=== PATIENT | female | born 2000 | race Caucasian/White ===

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

== ENCOUNTER 2019-04-26 10:03 | Emergency (ER) | payer OTHER ==
[~2019-04-26] VITALS: Ht 167.6 cm; Wt 67.0 kg
[~2019-04-26 10:03] MED LIST: ACET500C5 PO; IBUP-1542 PO; LACT1CAP28 PO; ONDA4TAB14 PO
[2019-04-26 10:06] VITALS: BP 125/77; PULSE 83; RESP 16; Ht 167.6 cm; Wt 67.0 kg
--- NOTE | 2019-04-26 12:08 | ERD ---
ER Documentation Chief Complaint Chief Complaint SORE THROAT AND COLD SX X3 DAYS HPI This is a 19-year-old otherwise healthy female presents to the ED complaining of subjective fevers, runny nose, sore throat x3 days. She has been taking mluo-smo-ozspakx DayQuil without any relief. She states cough is nonproductive in nature. No wheezing, no shortness of breath, no chest pain. She is most bothered by her sore throat. She denies any drooling, trismus, difficulty swallowing or tonsillar exudates. Immunizations UTD. ROS All systems reviewed and are negative except as per history of present illness. Medications Home Meds Active Scripts Ondansetron (Ondansetron Odt) 4 Mg Tab.rapdis, 4 MG PO Q6H PRN for NAUSEA AND/OR VOMITING, #20 TAB Prov:RUDY URBINA NP 03/04/18 Acetaminophen* (Tylophen*) 500 Mg Capsule, 1 CAP PO Q6H PRN for PAIN AND OR ELEVATED TEMP, #20 CAP Prov:RUDY URBINA NP 03/04/18 Ibuprofen* (Motrin*) 600 Mg Tab, 600 MG PO Q6H PRN for PAIN AND OR ELEVATED TEMP, #30 TAB Prov:RUDY URBINA NP 03/04/18 Lactobacillus Rhamnosus GG (Culturelle) 1 Each Capsule, 1 CAP PO BID for 30 Days, #60 CAP Prov:ELIZABETH MENDENHALL MD 01/07/18 Allergies Allergies: Coded Allergies: No Known Allergy (Unverified , 01/02/18) PMhx/Soc Medical and Surgical Hx: pt denies Medical Hx, pt denies Surgical Hx History of Surgery: No Anesthesia Reaction: No Hx Neurological Disorder: No Hx Respiratory Disorders: No Hx Cardiac Disorders: No Hx Psychiatric Problems: No Hx Miscellaneous Medical Probl: No Hx Alcohol Use: No Hx Substance Use: No Hx Tobacco Use: No Smoking Status: Never smoker Physical Exam Vitals Vital Signs Date Temp Pulse Resp B/P (MAP) Pulse Ox O2 O2 Flow FiO2 Time Delivery Rate 04/26/19 99.6 83 16 125/77 97 10:06 (93) Physical Exam GENERAL: Child is well hydrated, well nourished, and non-toxic with age- appropriate behavior. HEENT: + Posterior OP erythema, mild tonsillar edema with scant exudates. Uvula is midline. Bilateral ear canals and TM's are normal. EYES: Pupils equal, round, and reactive to light. Extra-ocular motions intact. NECK: C-spine is soft and supple. No meningismus. + LAD. Trachea is midline. LUNGS: Clear to auscultation bilaterally. There are no rales, wheezes, or rhonchi. There is no inspiratory stridor or retractions. HEART: Regular rate and rhythm. No murmurs, clicks, rubs, or gallops. SKIN: There is no apparent rash, petechiae, erythema, or swelling. Cap refill is less than 2 seconds. Procedures/MDM LABS & DIAGNOSTIC IMAGING: Rapid strep: negative Throat cx: pending MEDICAL DECISION MAKIN-year-old otherwise healthy female presents with URI. Pt is nontoxic appearing, well hydrated and tolerating PO. No signs of hypoxia or acute respiratory distress. She is most concerned of her sore throat, rapid strep was negative. I have low clinical suspicion for pneumonia or significant bacterial disease. Pt will be treated with outpatient supportive care; no indications for antibiotics at this time. Discussed appropriate use and dosing of Tylenol and Motrin for fever control with parents. Recommend following up with metal fabricating supervisor in 2-4 days, otherwise return to the ED for worsening fevers, difficulty breathing, difficulty swallowing or any other concern. PRESCRIPTIONS: None SPECIALIST FOLLOW UP RECOMMENDED: None Patient has been advised to follow up with primary care in 1-2 days. Departure Diagnosis: Primary Impression: URI (upper respiratory infection) URI type: unspecified viral URI Qualified Codes: J06.9 - Acute upper respiratory infection, unspecified Condition: Stable Patient Instructions: Preventing Common Respiratory Infections Referrals: [facility] YOU HAVE RECEIVED A MEDICAL SCREENING EXAM AND THE RESULTS INDICATE THAT YOU DO NOT HAVE A CONDITION THAT REQUIRES URGENT TREATMENT IN THE EMERGENCY DEPARTMENT. FURTHER EVALUATION AND TREATMENT OF YOUR CONDITION CAN WAIT UNTIL YOU ARE SEEN IN YOUR DOCTORS OFFICE WITHIN THE NEXT 1-2 DAYS. IT IS YOUR RESPONSIBILITY TO MAKE AN APPOINTMENT FOR FOLOW-UP CARE. IF YOU HAVE A PRIMARY DOCTOR --you should call your primary doctor and schedule an appointment IF YOU DO NOT HAVE A PRIMARY DOCTOR YOU CAN CALL OUR PHYSICIAN REFERRAL HOTLINE AT IF YOU CAN NOT AFFORD TO SEE A PHYSICIAN YOU CAN CHOSE FROM THE FOLLOWING [facility] [address] [facility] [address] [facility] [address] [facility] [address] [facility] [address] [facility]. [facility] [address] [facility]. [facility] YOU HAVE RECEIVED A MEDICAL SCREENING EXAM AND THE RESULTS INDICATE THAT YOU DO NOT HAVE A CONDITION THAT REQUIRES URGENT TREATMENT IN THE EMERGENCY DEPARTMENT. FURTHER EVALUATION AND TREATMENT OF YOUR CONDITION CAN WAIT UNTIL YOU ARE SEEN IN YOUR DOCTORS OFFICE WITHIN THE NEXT 1-2 DAYS. IT IS YOUR RESPONSIBILITY TO MAKE AN APPOINTMENT FOR FOLOW-UP CARE. IF YOU HAVE A PRIMARY DOCTOR --you should call your primary doctor and schedule and appointment IF YOU DO NOT HAVE A PRIMARY DOCTOR YOU CAN CALL OUR PHYSICIAN REFERRAL HOTLINE AT . IF YOU CAN NOT AFFORD TO SEE A PHYSICIAN YOU CAN CHOSE FROM THE FOLLOWING [facility] INSTITUTIONS[facility] [address] [place] [address] [facility] [address] [place], [place] [id number] [place] [address] [address] [place] [address] [facility] Additional Instructions: Call your primary care doctor TOMORROW for an appointment during the next 2-4 days and bring all the information and medications prescribed. If the symptoms get worse and your provider is unavailable, return to the Emergency Department immediately. ESME HICKS PA-C Apr 26, 2019 12:08
== END 2019-04-26 12:41 | disposition home or self-care (01) ==
LOC: FTE 10:03
DX: J06.9 Acute upper respiratory infection, unspecified (principal)
CPT/HCPCS: 87880; 99283